=== PATIENT | female | born 1970 | race African-American/Black ===

== ENCOUNTER 2017-05-24 22:46 | Emergency (ER) | payer BC ==
[~2017-05-24] VITALS: Ht 167.6 cm; Wt 59.0 kg
[2017-05-24 23:03] VITALS: BP 119/60
[2017-05-25] MEDS ORDERED: HYDROcodone-ACET 5/325MG TAB PO ONE (00:45)
== END 2017-05-25 00:44 | disposition home or self-care (01) ==
LOC: EDBD 22:46 → ER 22:49
DX: S46.912A Strain of unspecified muscle, fascia and tendon at shoulder and upper arm level, left arm, initial encounter (principal); Z90.710 Acquired absence of both cervix and uterus; Z90.49 Acquired absence of other specified parts of digestive tract; V43.52XA Car driver injured in collision with other type car in traffic accident, initial encounter; Y93.89 Activity, other specified; Y92.89 Other specified places as the place of occurrence of the external cause; Y99.8 Other external cause status

== ENCOUNTER 2025-07-19 13:46 | Emergency (ER) | payer BC, MEDICAID ==
[~2025-07-19] VITALS: Ht 157.5 cm; Wt 64.5 kg
--- NOTE | 2025-07-19 14:24 | ED.PDOC ---
History of Present Illness HPI Comments 55-year-old female who presents to the ED for c/c of abnormal labs Patient had lab work done yesterday and states that she was told to come to the ED after receiving call today by PCP telling her that her potassium was 3.0 Patient in the ED states she feels fine and otherwise denies chest pain shortness of breath nausea vomiting diarrhea or any associated symptoms Patient otherwise has a noted history of stage III CKD patient in the ED, has noted heart rate of 112 with otherwise stable vitals including temperature 98.0? F respiratory rate 16 blood pressure 121/83 ands 02 saturation of 97% on room air Past Medical history: diabetes, seizures, anemia, IBS, ulcerative colitis, stage III CKD Past Surgical history: D and C, , partial tubal ligation, cholecy stectomy, hysterectomy, left eye cataracts surgery, Medications: unknown ALLERGIES: Keflex, penicillins Social history: denies ETOh, denies tobacco use, denies drug use Ervin HPI: Poor Historian. 55-year-old female presents to emergency department for evaluation of low potassium 3.1 obtained yesterday by her PCP. She was called today to go to the ER for low potassium. Patient is completely asymptomatic. Patient is already on potassium replacement at home. REVIEW OF SYSTEMS: CONSTITUTIONAL: Denies acute: fever, diaphoresis, chills, generalized weakness. HEAD: Denies acute: headache, photophobia Eyes: Denies acute: Double vision, vision loss, eye pain, eye discharge. EARS: Denies acute: tinnitus, hearing loss, ear discharge, ear pain, THROAT: Denies acute: sore throat, swelling, difficulty swallowing , pain with swallowing, change in voice. NECK: Denies acute: neck pain, neck swelling, stiff neck. HEART: Denies acute : chest pain, palpitations, LUNGS: Denies acute: SOB, wheezing, cough, hemoptysis ABDOMEN: Denies acute: abdominal pain, Nausea, Vomiting, diarrhea, melena , hematemesis, hematochezia SKIN: Denies acute: rash, redness, lesions, itchiness. EXTREMITIES: Denies acute: calf pain, numbness, tingling, weakness, denies pain in extremity. Denies acute: Low back pain. Neuro: Denies acute: focal neurological deficit, motor or sensory focal neurological deficit, tremors, seizure like activity, confusion, dizziness, change in mental status, loss of bowel or bladder function, cauda equina like symptoms. : Denies acute: dysuria, hematuria, flank pain, increase in urinary frequency. PSYCH: Denies acute: hallucination, suicidal ideation, homicidal ideation. FEMALE: Denies acute: abnormal vaginal bleeding, foul odor, unusual discharge. PHYSICAL EXAM: General: ---no-----acute distress, awake and alert. Head: normocephalic, atraumatic. Neck: supple, trachea is midline, no swelling. Throat: Normal phonation. Eyes:, no erythema, no purulent discharge, no proptosis, no icterus. Heart: regular rate, regular rhythm, no significant murmur appreciated. Lungs: no apparent respiratory distress, Able to speak in full sentences. No wheezing, no rhonchi, no crackles. No stridors Clear to auscultation bilaterally. Abdomen: non tender to palpation, non distended, soft, no guarding, no rebound, + bowel sounds. Neuro: Awake, Alert, oriented to name, self, situation, follows commands GCS=15. Speech is normal. Skin: no petechia, no purpura, no cyanosis, non-pale, not jaundice. Lower extremities: --no - Pitting edema no deformity, no focal swelling, no calf TTP. Makes eye contact. moves all four extremities. Face: no apparent facial droop. Ambulating in the ED independently. ED COURSE: DISCLAIMER: This medical document was created using an electronic medical record system with voice recognition software and computerized dictation system. Although this document has been carefully reviewed, there might still be some phonetic and typographical errors. Occasional wrong-word or "sound-alike" substitutions may have occurred due to the inherent limitations of voice recognition software. These areas are purely typographical due to imperfections of the software programs and do not reflect any compromise in the patient's medical care. Please read the chart carefully and recognize, using context, where these substitutions have occurred. Chief Complaint: Abnormal LAB's Time Seen by MD: 14:22 Reviewed Notes: Medications, Allergies Allergies: Coded Allergies: Cephalexin (Verified Allergy, Unknown, 07/19/25) Penicillins (Verified Allergy, Unknown, 07/19/25) Information Source: Patient Mode of Arrival: Ambulatory Past Medical History PAST MEDICAL HISTORY: HTN Surgical History: Cholecystectomy, Hysterectomy ASSURANCE ASSISTANT History: No Pertinent ASSURANCE ASSISTANT History Family History Family History: No family hx of Cancer, No family hx of DM, No family hx of Heart mayo, No family hx of HTN Social History Smoker: Non-Smoker Alcohol: Denies ETOH Use Drugs: Denies Drug Use Lives In: Home Was a procedure done? Was a procedure done?: No Differential Dx Considerations may include: Prerenal etiology, dehydration, adverse effects of medications, cardiac injury, X-Ray, Labs, Meds, VS Vital Signs Date Time Temp Pulse Resp B/P (MAP) Pulse Ox O2 Delivery O2 Flow Rate FiO2 07/19/25 16:42 95 07/19/25 16:37 95 18 99 Room Air* 0 21 07/19/25 16:37 98.6 95 18 130/75 (93) 99 98.6 07/19/25 13:51 98.0 112 16 121/83 97 98.0 Lab Test 07/19/25 14:18 Range/Units White Blood Count 4.0 L 4.4-10.8 10^3/uL Red Blood Count 2.96 L 4.0-5.20 10^6/uL Hemoglobin 9.5 L 12.2-16.2 g/dL Hematocrit 28.9 L 36.0-46.0 % Mean Corpuscular Volume 97.6 80.0-100.0 fL Mean Corpuscular Hemoglobin 32.1 H 28.0-32.0 pg Mean Corpuscular Hemoglobin Concent 32.9 32.0-36.0 g/dL Red Cell Distribution Width 18.6 H 11.8-14.3 % Platelet Count 178 140-450 10^3/uL Mean Platelet Volume 8.7 6.9-10.8 fL Neutrophils (%) (Auto) 42.3 37.0-80.0 % Lymphocytes (%) (Auto) 46.5 10.0-50.0 % Monocytes (%) (Auto) 10.0 0.0-12.0 % Eosinophils (%) (Auto) 0.5 0.0-7.0 % Basophils (%) (Auto) 0.7 0.0-2.0 % Neutrophils # (Auto) 1.7 1.6-8.6 10 ^3/uL Lymphocytes # (Auto) 1.9 0.4-5.4 10 ^3/uL Monocytes # (Auto) 0.4 0-1.3 10 ^3/uL Eosinophils # (Auto) 0 0-0.8 10 ^3/uL Basophils # (Auto) 0 0-0.2 10 ^3/uL Nucleated Red Blood Cells 0.7 % Sodium Level 142 136-145 mmol/L Potassium Level 2.8 L 3.5-5.1 mmol/L Chloride Level 103 98-107 mmol/L Carbon Dioxide Level 25 20-31 mmol/L Anion Gap 14 5-15 Blood Urea Nitrogen < 5 L 9-23 mg/dL Creatinine 1.03 H 0.550-1.02 mg/dL Glomerular Filtration Rate Calc 63 >90 mL/min BUN/Creatinine Ratio 4.9 L 10.0-20.0 Serum Glucose 112 H 74-106 mg/dL Calcium Level 8.7 8.7-10.4 mg/dL Magnesium Level 1.2 L 1.6-2.6 mg/dL Time of 1ST Reevaluation: 00:00 Reevaluation 1ST: N/A Patient Education/Counseling: Diagnosis, Treatment Family Education/Counseling: No Family Present Comments MDM: patient presented with the above HPI.-hypokalemia-----workup was initiated. patient was found with the above mentioned diagnosis. the following medications were ordered: please refer to order lists of meds and tests obtained by myself Dr. Hahn. Patient ED course and VS have been stabilized. Patient has been reassessed in the ED and remained in a stable condition. Pertinent incidental findings were discussed with the patient and/or family. Patient/family voices understanding and is agreeable with plan. Patient has been observed in the ED adequate length of time to insure improvement/stability. Escalation of care considered: Consideration of escalation to observation or admission Her electrolytes were replaced. Patient was DISCHARGED home in a stable condition. All the reports of any imaging studies that were ordered by myself were reviewed by myself. 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 [employer] (07/19/25 ) Vital Signs Date Time Temp Pulse Resp B/P (MAP) Pulse Ox O2 Delivery O2 Flow Rate FiO2 07/19/25 16:42 95 07/19/25 16:37 95 18 99 Room Air* 0 21 07/19/25 16:37 98.6 95 18 130/75 (93) 99 98.6 07/19/25 13:51 98.0 112 16 121/83 97 98.0 Laboratory Tests Test 07/19/25 14:18 White Blood Count 4.0 10^3/uL (4.4-10.8) L Departure 1 Departure Time of Disposition: 15:01 Impression: Primary Impression: Hypokalemia Additional Impression: Hypomagnesemia Disposition: 01 HOME / SELF CARE / HOMELESS Condition: Stable Additional Instructions: Additional instructions: Please read all instructions provided in this packet carefully. You MUST follow-up with your primary care/family doctor in 1 to 2 days. If you are unable to see your primary care/family doctor, please return to our emergency room for re-assessment and re-evaluation in 1 to 2 days. Return to the emergency room here in our facility or to the nearest ER [facility] if your symptoms change or worsen. CONSULTATIONS: you MUST Follow-up with your specialist and consultants as soon as possible with: You MUST call the consultants office yourself to make an appointment. You may need to arrange that through your insurance and/or your primary/family doctor. If you are unable to see the software consultant in 1 to 2 days, you must return to our emergency room (or any other ER of your choice) for re-assessment and re- evaluation. Adequate fluid hydration. Although you have been discharged from the Emergency Department, this does not mean that you have a "clean bill of health". No definitive diagnosis for your symptoms has been made today. It is possible that you are in the process of developing a serious illness. This is why you must return to the ED without fail if any new or worsening symptoms develop. Repeat your basic metabolic panel and magnesium level to recheck these values. Discharged With: Self Critical Care Note Critical Care Time?: Yes (45 min-critical care time only) I personally scribed for BENJAMIN,ANN J DO ([facility]) on 07/19/25 at 14:24. Electronically submitted by Marc Denis ([facility] I personally scribed for ANN HAHN DO ([facility]) on 07/19/25 at 15:01. Electronically submitted by Marc Denis ([facility] ANN HAHN DO Jul 19, 2025 14:24
[2025-07-19 14:41] LABS: Hematocrit 28.9 % (36.0-46.0); Hemoglobin 9.5 g/dL (12.2-16.2); Mean Corpuscular Hemoglobin 32.1 pg (28.0-32.0); Mean Corpuscular Volume 97.6 fL (80.0-100.0); Nucleated Red Blood Cells % 0.7 %
[2025-07-19] MEDS ORDERED: IBUPROFEN 100MG/5ML ORAL SUSP 100 MG/5 ML UD PO ONE (14:45)
[2025-07-19 14:47] LABS: Chloride 103 mmol/L (98-107); Sodium 142 mmol/L (136-145)
[2025-07-19 14:48] LABS: Anion Gap 14 (5-15); Carbon Dioxide 25 mmol/L (20-31)
[2025-07-19 14:49] LABS: Calcium 8.7 mg/dL (8.7-10.4)
[2025-07-19 14:50] LABS: Potassium 2.8 mmol/L (3.5-5.1)
[2025-07-19 14:57] LABS: BUN/Creatinine Ratio 4.9 (10.0-20.0); Blood Urea Nitrogen < 5 mg/dL (9-23); Glucose 112 mg/dL (74-106); Magnesium 1.2 mg/dL (1.6-2.6)
[2025-07-19] MEDS ORDERED: MAGNESIUM SULFATE 1GM/100ML 100 ML IV ONE (15:00)
[2025-07-19] MEDS: MAGNESIUM OXIDE 400 MG TAB PO ONE (15:10)
[2025-07-19] MEDS: POTASSIUM CHL 20 Meq TABLET PO ONE (15:11)
[2025-07-19 16:37] VITALS: BP 130/75; PULSE 95; RESP 18; TEMP 98.6; O2SAT 99
[2025-07-19 16:42] VITALS: PULSE 95
--- NOTE | 2025-07-19 19:17 | ECG ---
[facility] Test Date: 2025-07-19 Test Time: 16:42:10 Pat Name: AN MAK Department: Room: Gender: F Consumer Services Advisor: NALLELY : 1970 Requested By: ANN ALEXANDER Order Number: [id number] Reading MD: Joaquin Linares Measurements Intervals [place] Rate: 95 P: 52 CA: 156 QRS: 28 QRSD: 78 T: 37 QT: 372 QTc: 468 Interpretive Statements Sinus rhythm Electronically Signed On 07-26-2025 21:44:36 PDT by Joaquin Linares Please click the below link to view image of tracing.
== END 2025-07-19 16:36 | disposition home or self-care (01) ==
LOC: ER 13:46
DX: E87.6 Hypokalemia (principal); E83.42 Hypomagnesemia; I12.9 Hypertensive chronic kidney disease with stage 1 through stage 4 chronic kidney disease, or unspecified chronic kidney disease; E11.22 Type 2 diabetes mellitus with diabetic chronic kidney disease; N18.30 Chronic kidney disease, stage 3 unspecified; Z98.42 Cataract extraction status, left eye; Z90.710 Acquired absence of both cervix and uterus; Z90.49 Acquired absence of other specified parts of digestive tract; Z88.1 Allergy status to other antibiotic agents; Z88.0 Allergy status to penicillin
CPT/HCPCS: 36415; 80048; 83735; 85025; 93005